=== PATIENT | male | born 1970 | race African-American/Black ===

== ENCOUNTER 2022-07-22 06:53 | Inpatient (IN) | payer OTHER ==
[2022-07-22] MEDS ORDERED: Nitroglycerin 50 MG/250 ML BOT 250 ML ONE (06:58)
[2022-07-22] MEDS ORDERED: Cefepime 2 GM VIAL ONE (07:30)
[2022-07-22 07:42] LABS: #Basophils 0.1 10x3/uL (0.0-0.2); #Eosinphils 0.3 10x3/uL (0.0-0.5); #Monocytes 0.8 10x3/uL (0.0-1.1); %Basophils 0.6 % (0.0-2.0); %Eosinophils 2.2 % (0.0-6.0); %Lymphocytes 10.2 % (18.0-47.0); %Monocytes 6.3 % (0.0-10.0); %Neutrophils 80.4 % (40.0-75.0); Mean Corpuscular Volume 84.4 fl (81.2-95.1); Mean Platelet Volume 9.8 fl (7.4-10.4); Platelet Count 496 10x3/uL (150-450); Red Blood Cell (RBC) Count 3.33 10x6/uL (4.32-5.72); White Blood Cell (WBC) Count 12.4 10x3/uL (3.5-10.5)
[2022-07-22] MEDS ORDERED: VANCOMYCIN 1.75 GM/350 ML BAG 1.75 GM in Premix Bag 1 BAG IVPB SCH (07:45)
[2022-07-22 07:55] LABS: INR-International Normal Ratio 1.1; PTT 25.1 sec (22.0-33.0); Prothrombin Time 11.7 sec (9.5-12.1)
[2022-07-22 07:58] LABS: ALT (SGPT) 35 U/L (8-55); AST (SGOT) 19 U/L (5-34); Albumin 3.1 g/dL (3.5-5.0); Alkaline Phosphatase 205 U/L (40-110); Anion Gap 20 mmol/L (10-20); BUN (Urea Nitrogen) 45 mg/dL (8.9-20.6); Bilirubin, Total 0.6 mg/dL (0.2-1.2); CK (CPK) 310 U/L (30-200); Calc. Creatinine Clearance 0 mL/min (70-130); Calcium 8.7 mg/dL (7.8-10.44); Carbon Dioxide 20 mmol/L (22-29); Chloride 105 mmol/L (98-107); Estimated GFR 32; Globulin 3.7 g/dL (2.4-3.5); Lipase 16 U/L (8-78); Potassium 4.9 mmol/L (3.5-5.1); Protein, Total 6.8 g/dL (6.0-8.3); Sodium 140 mmol/L (136-145)
[2022-07-22 07:59] LABS: Glucose 401 mg/dL (70-105)
[2022-07-22 08:16] LABS: CKMB 5.4 ng/mL (0-6.6)
[2022-07-22 08:25] LABS: SARS-CoV-2 NAA Rapid Test Not Detected (NotDetected)
[2022-07-22] MEDS ORDERED: Aspirin Chewable 81 MG TAB ONE (08:40)
[2022-07-22 09:03] LABS: Actual Bicarbonate (HCO3a) 21.1 mEq/L (22-28); Base Excess (BEa) -2.9 mEq/L (-2.0 to +3.0); CO2 Tension 33.8 mmHg (35.0-45.0); Calcium, Ionized (arterial) 1.12 mmol/L (1.12-1.30); Carboxyhemoglobin (COHb) 0.5 gm% (0.0-3.0); Hemoglobin (Hb) 9.4 g/dL (14.0-18.0); Potassium - ABG Lab 4.3 mmol/L (3.70-5.30); Puncture Site RRA; pH, Arterial 7.41 (7.35-7.45)
[2022-07-22] MEDS ORDERED: Dextrose 5% in Water 1,000 ML IV PRN (09:04)
[2022-07-22] MEDS ORDERED: Dextrose 50% Abboject 50 ML SYRINGE SLOW IVP PRN (09:04)
[2022-07-22] MEDS ORDERED: Acetaminophen 325 MG TAB PO PRN (09:05)
[2022-07-22] MEDS ORDERED: Ondansetron PF 4 MG/2 ML Vial IVP PRN (09:05)
[2022-07-22] MEDS ORDERED: Furosemide 40 MG/4 ML VIAL SLOW IVP SCH (09:15)
[2022-07-22] MEDS ORDERED: Lantus 1000 UNITS/10 ML VIAL SC SCH (09:30)
[2022-07-22 10:46] LABS: Lactic Acid 1.8 mmol/L (0.5-2.2)
[2022-07-22] MEDS: Pantoprazole 40 MG VIAL IVP SCH ×2 (11:17→20:21)
[2022-07-22] MEDS: HumaLOG 300 UNITS/3 ML VIAL SC PRN ×2 (17:14→20:27)
[2022-07-22] MEDS: Atorvastatin Calcium 40 MG TAB PO SCH (20:21)
[2022-07-22] MEDS: Cefepime 1 GM in Sodium Chloride 0.9% 50 ML IVPB SCH (20:21)
[2022-07-22] MEDS: Senokot S 8.6-50 MG TAB PO SCH (20:21)
[2022-07-22] MEDS ORDERED: Enoxaparin Sodium 100 MG/ML SYRINGE SC SCH (21:00)
[2022-07-23 03:50] LABS: #Basophils 0.1 10x3/uL (0.0-0.2); #Eosinphils 0.3 10x3/uL (0.0-0.5); #Monocytes 0.7 10x3/uL (0.0-1.1); #Neutrophils 11.3 10x3/uL (1.5-8.4); %Basophils 0.6 % (0.0-2.0); %Eosinophils 2.3 % (0.0-6.0); %Lymphocytes 7.6 % (18.0-47.0); %Monocytes 5.1 % (0.0-10.0); Hemoglobin 7.7 g/dL (13.5-17.5); Mean Corpuscular HGB CONC 31.3 g/dL (32.0-36.0); Mean Corpuscular Hemoglobin 26.2 pg (27.0-33.0); Mean Corpuscular Volume 83.7 fl (81.2-95.1); Mean Platelet Volume 9.6 fl (7.4-10.4); Platelet Count 414 10x3/uL (150-450); RBC Distribution Width 18.7 % (11.5-14.5); Red Blood Cell (RBC) Count 2.94 10x6/uL (4.32-5.72); White Blood Cell (WBC) Count 13.5 10x3/uL (3.5-10.5)
[2022-07-23 04:01] LABS: ALT (SGPT) 26 U/L (8-55); AST (SGOT) 16 U/L (5-34); Albumin 2.7 g/dL (3.5-5.0); Alkaline Phosphatase 140 U/L (40-110); Anion Gap 15 mmol/L (10-20); BUN (Urea Nitrogen) 48 mg/dL (8.9-20.6); Bilirubin, Total 0.6 mg/dL (0.2-1.2); Calc. Creatinine Clearance 48 mL/min (70-130); Calcium 8.5 mg/dL (7.8-10.44); Carbon Dioxide 22 mmol/L (22-29); Chloride 107 mmol/L (98-107); Estimated GFR 30; Globulin 3.6 g/dL (2.4-3.5); Glucose 108 mg/dL (70-105); Potassium 4.3 mmol/L (3.5-5.1); Protein, Total 6.3 g/dL (6.0-8.3); Sodium 140 mmol/L (136-145)
[2022-07-23] MEDS: Cefepime 1 GM in Sodium Chloride 0.9% 50 ML IVPB SCH ×2 (07:48→20:45)
[2022-07-23] MEDS: Pantoprazole 40 MG VIAL IVP SCH ×2 (07:49→20:45)
[2022-07-23] MEDS: Amlodipine 10 MG TAB PO SCH (07:49)
[2022-07-23] MEDS: Senokot S 8.6-50 MG TAB PO SCH ×2 (07:49→20:45)
[2022-07-23] MEDS: Lantus 1000 UNITS/10 ML VIAL SC SCH (07:51)
[2022-07-23] MEDS: HYDROcodone/Acetaminophen 5/325 mg Tablet PO PRN ×2 (08:34→21:05)
[2022-07-23] MEDS ORDERED: VANCOMYCIN 1.25 GM/250 ML BAG 1.25 GM in Premix Bag 1 BAG IVPB SCH (09:00)
[2022-07-23] MEDS ORDERED: PROPOFOL 20 ML ONE ×2 (16:50→17:13)
[2022-07-23] MEDS ORDERED: PHENYLEPHRINE-NS 100 MCG/ML 10 ML SYRINGE ONE (16:50)
[2022-07-23] MEDS: Atorvastatin Calcium 40 MG TAB PO SCH (20:45)
[2022-07-23] MEDS ORDERED: Enoxaparin Sodium 100 MG/ML SYRINGE SC SCH (21:00)
[2022-07-24 05:52] VITALS: BMI 29.7
[2022-07-24 06:57] LABS: Anion Gap 17 mmol/L (10-20); BUN (Urea Nitrogen) 52 mg/dL (8.9-20.6); Calc. Creatinine Clearance 45 mL/min (70-130); Calcium 8.2 mg/dL (7.8-10.44); Carbon Dioxide 19 mmol/L (22-29); Chloride 105 mmol/L (98-107); Estimated GFR 27; Glucose 305 mg/dL (70-105); Magnesium 1.9 mg/dL (1.6-2.6); Potassium 4.9 mmol/L (3.5-5.1); Sodium 136 mmol/L (136-145)
[2022-07-24 07:00] LABS: #Basophils 0.1 10x3/uL (0.0-0.2); #Eosinphils 0.4 10x3/uL (0.0-0.5); #Monocytes 0.7 10x3/uL (0.0-1.1); #Neutrophils 6.4 10x3/uL (1.5-8.4); %Basophils 0.7 % (0.0-2.0); %Eosinophils 4.4 % (0.0-6.0); %Lymphocytes 11.2 % (18.0-47.0); %Monocytes 7.9 % (0.0-10.0); %Neutrophils 75.3 % (40.0-75.0); Hemoglobin 8.6 g/dL (13.5-17.5); Mean Corpuscular HGB CONC 31.7 g/dL (32.0-36.0); Mean Corpuscular Hemoglobin 26.7 pg (27.0-33.0); Mean Corpuscular Volume 84.2 fl (81.2-95.1); Mean Platelet Volume 10.3 fl (7.4-10.4); Platelet Count 435 10x3/uL (150-450); RBC Distribution Width 18.8 % (11.5-14.5); Red Blood Cell (RBC) Count 3.22 10x6/uL (4.32-5.72); White Blood Cell (WBC) Count 8.5 10x3/uL (3.5-10.5)
[2022-07-24] MEDS: HumaLOG 300 UNITS/3 ML VIAL SC PRN ×2 (07:32→11:41)
[2022-07-24] MEDS ORDERED: Furosemide 40 MG/4 ML VIAL SLOW IVP SCH (08:00)
[2022-07-24] MEDS: Cefepime 1 GM in Sodium Chloride 0.9% 50 ML IVPB SCH (08:28)
[2022-07-24] MEDS: Pantoprazole 40 MG VIAL IVP SCH (08:28)
[2022-07-24] MEDS: Amlodipine 10 MG TAB PO SCH (08:28)
[2022-07-24] MEDS: Senokot S 8.6-50 MG TAB PO SCH ×2 (08:28→21:17)
[2022-07-24] MEDS: Lantus 1000 UNITS/10 ML VIAL SC SCH (08:30)
[2022-07-24] MEDS: Torsemide 20 MG TAB PO SCH (14:20)
[2022-07-24] MEDS: Enoxaparin Sodium 40 MG/0.4 ML SYRINGE SC SCH (21:16)
[2022-07-24] MEDS: Atorvastatin Calcium 40 MG TAB PO SCH (21:17)
[2022-07-24] MEDS: HYDROcodone/Acetaminophen 5/325 mg Tablet PO PRN (22:47)
[2022-07-25 05:43] LABS: #Basophils 0.1 10x3/uL (0.0-0.2); #Eosinphils 0.4 10x3/uL (0.0-0.5); #Monocytes 0.7 10x3/uL (0.0-1.1); #Neutrophils 7.2 10x3/uL (1.5-8.4); %Basophils 0.8 % (0.0-2.0); %Eosinophils 3.8 % (0.0-6.0); %Lymphocytes 10.8 % (18.0-47.0); %Monocytes 7.3 % (0.0-10.0); %Neutrophils 76.9 % (40.0-75.0); Hemoglobin 8.7 g/dL (13.5-17.5); Mean Corpuscular HGB CONC 32.1 g/dL (32.0-36.0); Mean Corpuscular Hemoglobin 26.7 pg (27.0-33.0); Mean Corpuscular Volume 83.1 fl (81.2-95.1); Mean Platelet Volume 10.2 fl (7.4-10.4); Platelet Count 440 10x3/uL (150-450); RBC Distribution Width 18.5 % (11.5-14.5); Red Blood Cell (RBC) Count 3.26 10x6/uL (4.32-5.72); White Blood Cell (WBC) Count 9.3 10x3/uL (3.5-10.5)
[2022-07-25 05:52] LABS: Anion Gap 15 mmol/L (10-20); BUN (Urea Nitrogen) 50 mg/dL (8.9-20.6); Calc. Creatinine Clearance 49 mL/min (70-130); Calcium 8.5 mg/dL (7.8-10.44); Carbon Dioxide 20 mmol/L (22-29); Chloride 105 mmol/L (98-107); Estimated GFR 30; Glucose 179 mg/dL (70-105); Potassium 5.1 mmol/L (3.5-5.1); Sodium 135 mmol/L (136-145)
[2022-07-25] MEDS: Senokot S 8.6-50 MG TAB PO SCH ×2 (09:51→20:10)
[2022-07-25] MEDS: Famotidine 20 MG TAB PO SCH (09:51)
[2022-07-25] MEDS: Amlodipine 10 MG TAB PO SCH (09:51)
[2022-07-25] MEDS: Lantus 1000 UNITS/10 ML VIAL SC SCH (09:51)
[2022-07-25] MEDS: Torsemide 20 MG TAB PO SCH ×2 (10:06→14:45)
[2022-07-25] MEDS: HumaLOG 300 UNITS/3 ML VIAL SC PRN ×2 (13:47→16:50)
[2022-07-25] MEDS: Enoxaparin Sodium 40 MG/0.4 ML SYRINGE SC SCH (20:10)
[2022-07-25] MEDS: Atorvastatin Calcium 40 MG TAB PO SCH (20:11)
[2022-07-25] MEDS: HYDROcodone/Acetaminophen 5/325 mg Tablet PO PRN (22:26)
[2022-07-26] MEDS: Torsemide 20 MG TAB PO SCH ×2 (01:35→08:28)
[2022-07-26] MEDS: HYDROcodone/Acetaminophen 5/325 mg Tablet PO PRN ×2 (06:26→20:05)
[2022-07-26] MEDS: Senokot S 8.6-50 MG TAB PO SCH ×2 (08:28→20:05)
[2022-07-26] MEDS: Amlodipine 10 MG TAB PO SCH (08:28)
[2022-07-26] MEDS: Lantus 1000 UNITS/10 ML VIAL SC SCH (08:28)
[2022-07-26] MEDS: Famotidine 20 MG TAB PO SCH (08:28)
[2022-07-26] MEDS: HumaLOG 300 UNITS/3 ML VIAL SC PRN (12:55)
[2022-07-26 15:24] LABS: Bilirubin Neg (Negative); Blood, Urine 25 (Negative); CAUTI Indications for Culture Fever or rigors; Clarity Clear (Clear); Glucose, Urine (Dipstick) Normal (Negative); Ketone, Urine Negative (Negative); Leukocyte Negative (Negative); Nitrite Negative (Negative); Protein, Urine (Dipstick) 100 mg/dl (Neg-Trace); Urobilinogen Normal mg/dL (Less than 2)
[2022-07-26 15:30] LABS: Urine Culture Reflex No No
[2022-07-26 15:40] LABS: RBC/HPF 0-3 HPF (0-3); WBC/HPF None Seen HPF (0-3)
[2022-07-26 15:41] LABS: Bacteria/HPF Rare-Few HPF (None Seen); Squamous Epithelial 0-3 HPF (0-3)
[2022-07-26] MEDS: Enoxaparin Sodium 40 MG/0.4 ML SYRINGE SC SCH (20:05)
[2022-07-26] MEDS: Atorvastatin Calcium 40 MG TAB PO SCH (20:05)
[2022-07-27] MEDS: HYDROcodone/Acetaminophen 5/325 mg Tablet PO PRN ×4 (05:54→21:16)
[2022-07-27] MEDS: HumaLOG 300 UNITS/3 ML VIAL SC PRN ×4 (07:29→21:18)
[2022-07-27] MEDS: Amlodipine 10 MG TAB PO SCH (09:14)
[2022-07-27] MEDS: Lantus 1000 UNITS/10 ML VIAL SC SCH (09:14)
[2022-07-27] MEDS: Famotidine 20 MG TAB PO SCH (09:15)
[2022-07-27] MEDS: Senokot S 8.6-50 MG TAB PO SCH (09:15)
[2022-07-27] MEDS: Torsemide 20 MG TAB PO SCH ×2 (09:15→12:59)
[2022-07-27 12:27] LABS: #Basophils 0.1 10x3/uL (0.0-0.2); #Eosinphils 0.3 10x3/uL (0.0-0.5); #Monocytes 0.9 10x3/uL (0.0-1.1); #Neutrophils 4.3 10x3/uL (1.5-8.4); %Basophils 1.1 % (0.0-2.0); %Lymphocytes 13.1 % (18.0-47.0); %Monocytes 14.4 % (0.0-10.0); %Neutrophils 66.9 % (40.0-75.0); Mean Corpuscular Volume 84.5 fl (81.2-95.1); Mean Platelet Volume 10.1 fl (7.4-10.4); Platelet Count 411 10x3/uL (150-450); RBC Distribution Width 18.6 % (11.5-14.5); Red Blood Cell (RBC) Count 2.96 10x6/uL (4.32-5.72); White Blood Cell (WBC) Count 6.5 10x3/uL (3.5-10.5)
[2022-07-27 12:38] LABS: Anion Gap 17 mmol/L (10-20); BUN (Urea Nitrogen) 47 mg/dL (8.9-20.6); Calc. Creatinine Clearance 52 mL/min (70-130); Calcium 8.5 mg/dL (7.8-10.44); Carbon Dioxide 20 mmol/L (22-29); Chloride 102 mmol/L (98-107); Estimated GFR 32; Glucose 202 mg/dL (70-105); Potassium 4.3 mmol/L (3.5-5.1); Sodium 135 mmol/L (136-145)
[2022-07-27] MEDS: Atorvastatin Calcium 40 MG TAB PO SCH (21:16)
[2022-07-28] MEDS: Senokot S 8.6-50 MG TAB PO SCH ×2 (04:01→09:33)
[2022-07-28] MEDS: HYDROcodone/Acetaminophen 5/325 mg Tablet PO PRN (05:53)
[2022-07-28] MEDS: HumaLOG 300 UNITS/3 ML VIAL SC PRN (05:55)
[2022-07-28 08:22] VITALS: BP 176/85; TEMP 98.2
[2022-07-28] MEDS: Torsemide 20 MG TAB PO SCH (09:33)
[2022-07-28] MEDS: Lantus 1000 UNITS/10 ML VIAL SC SCH (09:33)
[2022-07-28] MEDS: Amlodipine 10 MG TAB PO SCH (09:33)
[2022-07-28] MEDS: Famotidine 20 MG TAB PO SCH (09:33)
== END 2022-07-28 10:48 | DRG 280 ==
LOC: CSHERS 06:53 → EEVIPCON 06:53 → SUATTDRO 06:53 → CSHICU 09:32 → CSHTELE 07-24 14:26
PROVIDERS: ADMIT Internal Medicine; ATTEND Family Medicine
PROC: 5A09357 Assistance with Respiratory Ventilation, Less than 24 Consecutive Hours, Continuous Positive Airway Pressure (ICD-10-PCS; principal; 2022-07-22)
PROC: 0DJ08ZZ Inspection of Upper Intestinal Tract, Via Natural or Artificial Opening Endoscopic (ICD-10-PCS; 2022-07-23)
DX: I16.1 Hypertensive emergency (principal); I21.A1 Myocardial infarction type 2; J96.01 Acute respiratory failure with hypoxia; N17.9 Acute kidney failure, unspecified; N18.4 Chronic kidney disease, stage 4 (severe); K92.2 Gastrointestinal hemorrhage, unspecified; I13.0 Hypertensive heart and chronic kidney disease with heart failure and stage 1 through stage 4 chronic kidney disease, or unspecified chronic kidney disease; I50.9 Heart failure, unspecified; Z20.822 Contact with and (suspected) exposure to COVID-19; E11.22 Type 2 diabetes mellitus with diabetic chronic kidney disease; E11.65 Type 2 diabetes mellitus with hyperglycemia; K21.9 Gastro-esophageal reflux disease without esophagitis; D63.1 Anemia in chronic kidney disease; K29.80 Duodenitis without bleeding
CPT/HCPCS: 36415; 36416; 36600; 71045; 80048; 80053; 81001; 82550; 82553; 82805; 83605; 83690; 83735; 83880; 84484; 85025; 85610; 85730; 86850; 86900; 86901; 87040; 93005; 93880; 94660; 94760; 96365; 96366; 96367; C9113; J0692; J1650; J1815; J1940; J2704; J3370

== ENCOUNTER 2022-08-01 13:28 | Emergency (ER) | payer OTHER ==
[2022-08-01] MEDS ORDERED: Aspirin Chewable 81 MG TAB ONE (13:54)
[2022-08-01] MEDS ORDERED: Piperacillin/Tazobactam 4.5 GM VIAL ONE (13:55)
[2022-08-01] MEDS ORDERED: Ipratropium/Albuterol 3 ML NEB ONE (13:55)
[2022-08-01 14:06] LABS: #Basophils 0.1 10x3/uL (0.0-0.2); #Eosinphils 0.3 10x3/uL (0.0-0.5); #Monocytes 0.8 10x3/uL (0.0-1.1); #Neutrophils 8.3 10x3/uL (1.5-8.4); %Basophils 0.6 % (0.0-2.0); %Eosinophils 2.9 % (0.0-6.0); %Lymphocytes 10.9 % (18.0-47.0); %Monocytes 7.1 % (0.0-10.0); %Neutrophils 77.5 % (40.0-75.0); Hemoglobin 8.7 g/dL (13.5-17.5); Mean Corpuscular HGB CONC 31.9 g/dL (32.0-36.0); Mean Corpuscular Hemoglobin 26.8 pg (27.0-33.0); Mean Platelet Volume 9.6 fl (7.4-10.4); Platelet Count 515 10x3/uL (150-450); RBC Distribution Width 18.4 % (11.5-14.5); Red Blood Cell (RBC) Count 3.25 10x6/uL (4.32-5.72); White Blood Cell (WBC) Count 10.7 10x3/uL (3.5-10.5)
[2022-08-01 14:18] LABS: INR-International Normal Ratio 1.1; PTT 24.7 sec (22.0-33.0); Prothrombin Time 11.9 sec (9.5-12.1)
[2022-08-01 14:24] LABS: ALT (SGPT) 61 U/L (8-55); AST (SGOT) 74 U/L (5-34); Alkaline Phosphatase 236 U/L (40-110); Anion Gap 15 mmol/L (10-20); BUN (Urea Nitrogen) 42 mg/dL (8.9-20.6); Bilirubin, Total 0.3 mg/dL (0.2-1.2); CK (CPK) 360 U/L (30-200); Calc. Creatinine Clearance 0 mL/min (70-130); Calcium 8.1 mg/dL (7.8-10.44); Carbon Dioxide 20 mmol/L (22-29); Chloride 106 mmol/L (98-107); Estimated GFR 35; Globulin 3.5 g/dL (2.4-3.5); Glucose 315 mg/dL (70-105); Lipase 33 U/L (8-78); Potassium 4.6 mmol/L (3.5-5.1); Protein, Total 6.5 g/dL (6.0-8.3); Sodium 136 mmol/L (136-145)
[2022-08-01 14:43] LABS: CKMB 4.6 ng/mL (0-6.6)
[2022-08-01] MEDS ORDERED: Nitroglycerin 2% Ointment 1 INCH/1 GM Packet ONE (14:46)
[2022-08-01] MEDS ORDERED: Furosemide 40 MG/4 ML VIAL ONE (15:23)
[2022-08-01 15:57] LABS: SARS-CoV-2 NAA Rapid Test DETECTED (NotDetected)
[2022-08-01] MEDS ORDERED: Lidocaine Viscous Sol 2% 15 ml UD Cup ONE (19:25)
[2022-08-01] MEDS ORDERED: Mag-Al Plus 1200 MG/1200 MG/120 MG/30 ML UDCUP ONE (19:25)
== END 2022-08-01 21:21 | disposition short-term general hospital (02) ==
LOC: EEVIPCON 13:28 → CSHERS 13:28
DX: U07.1 COVID-19 (principal); E11.9 Type 2 diabetes mellitus without complications; K21.9 Gastro-esophageal reflux disease without esophagitis; I11.0 Hypertensive heart disease with heart failure; I50.9 Heart failure, unspecified; E03.9 Hypothyroidism, unspecified
CPT/HCPCS: 36415; 36416; 71045; 80053; 82550; 82553; 83605; 83690; 83880; 84484; 85025; 85610; 85730; 87040; 93005; 96374; 96375; J1940; J2543; J7620; U0002

== ENCOUNTER 2022-08-23 12:18 | Inpatient (IN) | payer OTHER ==
[2022-08-23 12:57] VITALS: BMI 29.9
[2022-08-23] MEDS ORDERED: Ondansetron ODT 4 MG TAB PO PRN (17:21)
[2022-08-23] MEDS ORDERED: Acetaminophen 325 MG TAB PO PRN (17:21)
[2022-08-23] MEDS ORDERED: Senokot S 8.6-50 MG TAB PO PRN (17:21)
[2022-08-23] MEDS ORDERED: Ondansetron PF 4 MG/2 ML Vial IVP PRN (17:21)
[2022-08-23] MEDS ORDERED: Dextrose 5% in Water 1,000 ML IV PRN (17:24)
[2022-08-23] MEDS ORDERED: Dextrose 50% Abboject 50 ML SYRINGE SLOW IVP PRN (17:24)
[2022-08-23] MEDS ORDERED: Ventolin HFA Inhaler 60 PUFF INHALER INH PRN (17:40)
[2022-08-23] MEDS: HumaLOG 300 UNITS/3 ML VIAL SC PRN ×2 (17:49→22:18)
[2022-08-23 18:35] LABS: CKMB 4.8 ng/mL (0-6.6)
[2022-08-23] MEDS: Metoprolol Tartrate 50 MG TAB PO SCH (21:07)
[2022-08-23] MEDS: Apixaban 5 MG TAB PO SCH (21:07)
[2022-08-23] MEDS: Atorvastatin Calcium 40 MG TAB PO SCH (21:07)
[2022-08-23] MEDS: Furosemide 40 MG/4 ML VIAL SLOW IVP SCH (21:09)
[2022-08-24 05:42] LABS: #Basophils 0.1 10x3/uL (0.0-0.2); #Eosinphils 0.4 10x3/uL (0.0-0.5); #Monocytes 0.9 10x3/uL (0.0-1.1); #Neutrophils 8.6 10x3/uL (1.5-8.4); %Basophils 0.4 % (0.0-2.0); %Eosinophils 3.5 % (0.0-6.0); %Lymphocytes 11.2 % (18.0-47.0); %Monocytes 8.3 % (0.0-10.0); %Neutrophils 76.1 % (40.0-75.0); Hemoglobin 8.2 g/dL (13.5-17.5); Mean Corpuscular HGB CONC 31.7 g/dL (32.0-36.0); Mean Corpuscular Hemoglobin 26.4 pg (27.0-33.0); Mean Corpuscular Volume 83.3 fl (81.2-95.1); Mean Platelet Volume 9.7 fl (7.4-10.4); Platelet Count 361 10x3/uL (150-450); Red Blood Cell (RBC) Count 3.11 10x6/uL (4.32-5.72); White Blood Cell (WBC) Count 11.3 10x3/uL (3.5-10.5)
[2022-08-24 05:48] LABS: Anion Gap 15 mmol/L (10-20); BUN (Urea Nitrogen) 57 mg/dL (8.9-20.6); Calc. Creatinine Clearance 46 mL/min (70-130); Calcium 8.7 mg/dL (7.8-10.44); Carbon Dioxide 25 mmol/L (22-29); Chloride 105 mmol/L (98-107); Estimated GFR 27; Glucose 155 mg/dL (70-105); Magnesium 1.9 mg/dL (1.6-2.6); Potassium 4.4 mmol/L (3.5-5.1); Sodium 141 mmol/L (136-145)
[2022-08-24] MEDS: Lisinopril 10 MG TAB PO SCH (10:25)
[2022-08-24] MEDS: Loratadine 10 MG TAB PO SCH (10:25)
[2022-08-24] MEDS: Metoprolol Tartrate 50 MG TAB PO SCH ×2 (10:27→21:20)
[2022-08-24] MEDS: Apixaban 5 MG TAB PO SCH ×2 (10:28→21:20)
[2022-08-24] MEDS: Furosemide 40 MG/4 ML VIAL SLOW IVP SCH ×2 (10:28→21:20)
[2022-08-24] MEDS: Amlodipine 10 MG TAB PO SCH (10:28)
[2022-08-24] MEDS: Clopidogrel Bisulfate 75 MG TAB PO SCH (10:28)
[2022-08-24] MEDS: Sodium Chloride 0.9% 1,000 ML IV SCH ×2 (10:35→21:26)
[2022-08-24] MEDS: HumaLOG 300 UNITS/3 ML VIAL SC PRN ×2 (12:34→15:51)
[2022-08-24] MEDS: Atorvastatin Calcium 40 MG TAB PO SCH (21:20)
[2022-08-25] MEDS: HumaLOG 300 UNITS/3 ML VIAL SC PRN ×4 (00:46→21:07)
[2022-08-25 05:49] LABS: #Eosinphils 0.5 10x3/uL (0.0-0.5); #Monocytes 0.9 10x3/uL (0.0-1.1); #Neutrophils 6.7 10x3/uL (1.5-8.4); %Basophils 0.4 % (0.0-2.0); %Lymphocytes 11.6 % (18.0-47.0); %Monocytes 9.6 % (0.0-10.0); %Neutrophils 72.8 % (40.0-75.0); Mean Corpuscular HGB CONC 32.3 g/dL (32.0-36.0); Mean Corpuscular Hemoglobin 26.8 pg (27.0-33.0); Mean Corpuscular Volume 82.9 fl (81.2-95.1); Mean Platelet Volume 9.8 fl (7.4-10.4); Platelet Count 364 10x3/uL (150-450); RBC Distribution Width 17.7 % (11.5-14.5); Red Blood Cell (RBC) Count 2.99 10x6/uL (4.32-5.72); White Blood Cell (WBC) Count 9.3 10x3/uL (3.5-10.5)
[2022-08-25 06:14] LABS: Anion Gap 14 mmol/L (10-20); BUN (Urea Nitrogen) 58 mg/dL (8.9-20.6); Calc. Creatinine Clearance 46 mL/min (70-130); Calcium 8.2 mg/dL (7.8-10.44); Carbon Dioxide 23 mmol/L (22-29); Chloride 107 mmol/L (98-107); Estimated GFR 27; Glucose 198 mg/dL (70-105); Potassium 4.6 mmol/L (3.5-5.1); Sodium 139 mmol/L (136-145)
[2022-08-25] MEDS: Amlodipine 10 MG TAB PO SCH (08:59)
[2022-08-25] MEDS: Metoprolol Tartrate 50 MG TAB PO SCH ×2 (08:59→20:54)
[2022-08-25] MEDS: Furosemide 40 MG/4 ML VIAL SLOW IVP SCH ×2 (08:59→20:55)
[2022-08-25] MEDS: Clopidogrel Bisulfate 75 MG TAB PO SCH (08:59)
[2022-08-25] MEDS: Apixaban 5 MG TAB PO SCH ×2 (08:59→20:55)
[2022-08-25] MEDS: Lisinopril 10 MG TAB PO SCH (08:59)
[2022-08-25] MEDS: Loratadine 10 MG TAB PO SCH (08:59)
[2022-08-25] MEDS ORDERED: Moisturizing Cream (Eucerin) 113 GM JAR TOP PRN (12:40)
[2022-08-25] MEDS: Atorvastatin Calcium 40 MG TAB PO SCH (20:54)
[2022-08-25] MEDS ORDERED: Insulin NPH Human Isophane 100 UNIT/ML (10 ML VIAL) SC SCH (21:00)
[2022-08-25] MEDS ORDERED: NPH, Human Insulin Isophane 300 UNIT/3 ML VIAL SC SCH (21:00)
[2022-08-26 05:05] LABS: #Basophils 0.1 10x3/uL (0.0-0.2); #Eosinphils 0.5 10x3/uL (0.0-0.5); #Monocytes 0.8 10x3/uL (0.0-1.1); %Basophils 0.6 % (0.0-2.0); %Eosinophils 5.4 % (0.0-6.0); %Lymphocytes 11.3 % (18.0-47.0); %Monocytes 9.4 % (0.0-10.0); %Neutrophils 72.7 % (40.0-75.0); Hemoglobin 8.5 g/dL (13.5-17.5); Mean Corpuscular HGB CONC 31.8 g/dL (32.0-36.0); Mean Corpuscular Hemoglobin 26.4 pg (27.0-33.0); Mean Corpuscular Volume 82.9 fl (81.2-95.1); Mean Platelet Volume 9.7 fl (7.4-10.4); Platelet Count 387 10x3/uL (150-450); RBC Distribution Width 17.7 % (11.5-14.5); Red Blood Cell (RBC) Count 3.22 10x6/uL (4.32-5.72); White Blood Cell (WBC) Count 8.3 10x3/uL (3.5-10.5)
[2022-08-26 05:29] LABS: Anion Gap 14 mmol/L (10-20); BUN (Urea Nitrogen) 59 mg/dL (8.9-20.6); Calc. Creatinine Clearance 45 mL/min (70-130); Calcium 8.3 mg/dL (7.8-10.44); Carbon Dioxide 23 mmol/L (22-29); Chloride 106 mmol/L (98-107); Estimated GFR 27; Glucose 358 mg/dL (70-105); Magnesium 2.1 mg/dL (1.6-2.6); Potassium 4.5 mmol/L (3.5-5.1); Sodium 138 mmol/L (136-145)
[2022-08-26] MEDS: HumaLOG 300 UNITS/3 ML VIAL SC PRN ×2 (06:18→13:32)
[2022-08-26] MEDS: Amlodipine 10 MG TAB PO SCH (08:59)
[2022-08-26] MEDS: Apixaban 5 MG TAB PO SCH (08:59)
[2022-08-26] MEDS: Lisinopril 10 MG TAB PO SCH (08:59)
[2022-08-26] MEDS: Furosemide 40 MG/4 ML VIAL SLOW IVP SCH (08:59)
[2022-08-26] MEDS ORDERED: Insulin NPH Human Isophane 100 UNIT/ML (10 ML VIAL) SC SCH ×2 (09:00)
[2022-08-26] MEDS: Loratadine 10 MG TAB PO SCH (09:00)
[2022-08-26] MEDS: Metoprolol Tartrate 50 MG TAB PO SCH (09:00)
[2022-08-26] MEDS: Clopidogrel Bisulfate 75 MG TAB PO SCH (09:00)
[2022-08-26] MEDS ORDERED: NPH, Human Insulin Isophane 300 UNIT/3 ML VIAL SC SCH (09:00)
[2022-08-26 17:15] VITALS: BP 164/87; TEMP 98
== END 2022-08-26 19:12 | DRG 291 ==
LOC: CSHTELE 12:18 → INTOOBSV 12:18 → EEVIPCON 08-24 10:07 → OBSVTOIN 08-24 10:07
PROVIDERS: ADMIT Family Medicine; ATTEND Internal Medicine
DX: I50.23 Acute on chronic systolic (congestive) heart failure (principal); J96.01 Acute respiratory failure with hypoxia; N18.4 Chronic kidney disease, stage 4 (severe); N17.9 Acute kidney failure, unspecified; I25.5 Ischemic cardiomyopathy; I12.9 Hypertensive chronic kidney disease with stage 1 through stage 4 chronic kidney disease, or unspecified chronic kidney disease; J45.909 Unspecified asthma, uncomplicated; I25.10 Atherosclerotic heart disease of native coronary artery without angina pectoris; D63.1 Anemia in chronic kidney disease; I87.8 Other specified disorders of veins; E11.22 Type 2 diabetes mellitus with diabetic chronic kidney disease; Z86.73 Personal history of transient ischemic attack (TIA), and cerebral infarction without residual deficits; Z79.899 Other long term (current) drug therapy; Z95.5 Presence of coronary angioplasty implant and graft; Z79.4 Long term (current) use of insulin; Z79.01 Long term (current) use of anticoagulants; Z86.718 Personal history of other venous thrombosis and embolism; I25.2 Old myocardial infarction; Z87.891 Personal history of nicotine dependence; Z86.16 Personal history of COVID-19
CPT/HCPCS: 36415; 36416; 80048; 82553; 83735; 84443; 85025; 93005; 93010; 94760; 96374; 96376; 97139; G0378; J1815; J1940; J7050